=== PATIENT | female | born 1995 | race Caucasian/White ===

== ENCOUNTER 2019-12-30 18:45 | Emergency (ER) | payer OTHER, SELFPAY ==
--- NOTE | 2019-12-30 20:31 | EDPHYS ---
Physician Documentation [facility] Name: Kassidy Cruz Age: 24 yrs Sex: Female : 1995 Arrival Date: 12/30/2019 Time: 18:47 Bed 16 Private MD: ED Physician Krishna Sawant HPI: 12/29 19:13 This 24 yrs old Female presents to ER via Ambulatory with complaints of tw4 Anxiety, Psych Problem. 19:13 The patient presents to the emergency department with anxiety. Onset: The tw4 symptoms/episode began/occurred today. Past psychiatric history: Prior diagnosis: bipolar disorder, schizophrenia. Associated signs and symptoms: The patient has no apparent associated signs or symptoms. Severity of symptoms: At their worst the symptoms were moderate in the emergency department the symptoms are unchanged. The patient has not experienced similar symptoms in the past. 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 - Social history:: Smoking status: Patient reports the use of cigarette tobacco products, smokes one-half pack cigarettes per day, Patient/guardian denies using alcohol, street drugs. ROS: 19:13 Constitutional: Negative for fever, chills, and weight loss, Eyes: Negative for injury, tw4 pain, redness, and discharge, Cardiovascular: Negative for chest pain, palpitations, and edema, Respiratory: Negative for shortness of breath, cough, wheezing, and pleuritic chest pain, Abdomen/GI: Negative for abdominal pain, nausea, vomiting, diarrhea, and constipation, Back: Negative for injury and pain, MS/Extremity: Negative for injury and deformity, Skin: Negative for injury, rash, and discoloration, Neuro: Negative for headache, weakness, numbness, tingling, and seizure. 19:13 Psych: Positive for anxiety, depression. Exam: 19:13 Constitutional: This is a well developed, well nourished patient who is awake, alert, tw4 and in no acute distress. Head/Face: Normocephalic, atraumatic. Chest/axilla: Normal chest wall appearance and motion. Nontender with no deformity. No lesions are appreciated. Cardiovascular: Regular rate and rhythm with a normal S1 and S2. No gallops, murmurs, or rubs. Normal PMI, no JVD. No pulse deficits. Respiratory: Lungs have equal breath sounds bilaterally, clear to auscultation and percussion. No rales, rhonchi or wheezes noted. No increased work of breathing, no retractions or nasal flaring. Abdomen/GI: Soft, non-tender, with normal bowel sounds. No distension or tympany. No guarding or rebound. No evidence of tenderness throughout. Back: No spinal tenderness. No costovertebral tenderness. Full range of motion. MS/ Extremity: Pulses equal, no cyanosis. Neurovascular intact. Full, normal range of motion. Neuro: Awake and alert, GCS 15, oriented to person, place, time, and situation. Cranial nerves II-XII grossly intact. Motor strength 5/5 in all extremities. Sensory grossly intact. Cerebellar exam normal. Normal gait. 19:13 Psych: Behavior/mood is anxious, Affect is animated, Oriented to person, place, time, Patient has no thoughts/intents to harm self or others. Vital Signs: 18:48 BP 118 / 77; Pulse 93; Resp 15 S; Temp 98.3(TE); Pulse Ox 99% on R/A; Weight 68.04 kg ca1 (R); Height 5 ft. 7 in. (170.18 cm) (R); 19:52 BP 108 / 70; Pulse 72; Resp 18; Pulse Ox 99% on R/A; wh 20:35 BP 106 / 73; Pulse 74; Resp 18; Pulse Ox 100% on R/A; wh 18:48 Body Mass Index 23.49 (68.04 kg, 170.18 cm) ca1 MDM: 20:31 Patient medically screened. tw4 20:44 Differential diagnosis: acute psychotic break, depression. Data reviewed: vital signs, tw4 nurses notes. Data interpreted: Pulse oximetry: Interpretation: normal. Counseling: I had a detailed discussion with the patient and/or guardian regarding: the historical points, exam findings, and any diagnostic results supporting the discharge/admit diagnosis. Special discussion: I discussed with the patient/guardian in detail that at this point there is no indication for admission to the hospital. It is understood, however, that if the symptoms persist or worsen the patient needs to return immediately for re-evaluation. Administered Medications: 20:30 Drug: Ativan 1 mg Route: PO; 20:36 Follow up: Response: No adverse reaction; Anxiety unchanged; RASS: Alert and Calm (0) 20:32 CANCELLED (Physician Discretion): Haldol 5 mg PO once tw4 Disposition: 12/30/19 20:31 Discharged to Home. Impression: Anxiety disorder, unspecified. - Condition is Stable. - Discharge Instructions: Generalized Anxiety Disorder. - Medication Reconciliation Form, Thank You Letter, Antibiotic Education, Prescription Opioid Use form. - Follow up: Private Physician; When: Upon discharge from the Emergency Department; Reason: Recheck today's complaints, Continuance of care, Re-evaluation by your physician. - Problem is new. - Symptoms have improved. Signatures: Maria Luisa Nelson Krishna Sawant MD MD tw4 Serene Mehta RN RN ca1 Corrections: (The following items were deleted from the chart) 20:32 20:30 Haldol 5 mg PO once ordered. tw4 tw4 20:37 20:31 12/30/2019 20:31 Discharged to Home. Impression: Anxiety disorder, unspecified. Condition is Stable. Forms are Medication Reconciliation Form, Thank You Letter, Antibiotic Education, Prescription Opioid Use. Follow up: Private Physician; When: Upon discharge from the Emergency Department; Reason: Recheck today's complaints, Continuance of care, Re-evaluation by your physician. Problem is new. Symptoms have improved. tw4
--- NOTE | 2019-12-30 20:31 | ER ---
Nurse's Notes [facility] Name: Kassidy Cruz Age: 24 yrs Sex: Female : 1995 Arrival Date: 12/30/2019 Time: 18:47 Bed 16 Private MD: Diagnosis: Anxiety disorder, unspecified Presentation: 12/29 18:48 Chief complaint: Patient states: "I haven't slept in 138 hours. I can't eat, I have ca1 been vomiting. I can't sleep. My schizophrenia is getting worse since I haven't taken my meds for about a month now. Am also out of anxiety and depression medications". Coronavirus screen: Proceed with normal triage. Patient denies a cough. Patient denies shortness of breath or difficulty breathing. Patient denies measured and/or subjective temperature greater than 100.4F prior to today's visit. Patient denies travel on a cruise ship or to a country the [facility] currently lists as an affected area. Patient denies contact with known and/or suspected case of COVID-19. Ebola Screen: Patient negative for fever greater than or equal to 101.5 degrees Fahrenheit, and additional compatible Ebola Virus Disease symptoms Patient denies exposure to infectious person. Patient denies travel to an Ebola-affected area in the 21 days before illness onset. No symptoms or risks identified at this time. Initial Sepsis Screen: Does the patient meet any 2 criteria? No. Patient's initial sepsis screen is negative. Does the patient have a suspected source of infection? No. Patient's initial sepsis screen is negative. Risk Assessment: Do you want to hurt yourself or someone else? Patient reports no desire to harm self or others. Onset of symptoms was December 30, 2019. 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 - Social history:: Smoking status: Patient reports the use of cigarette tobacco products, smokes one-half pack cigarettes per day, Patient/guardian denies using alcohol, street drugs. Screenin:51 Abuse screen: Denies threats or abuse. Denies injuries from another. Nutritional wh screening: No deficits noted. Tuberculosis screening: No symptoms or risk factors identified. Fall Risk None identified. Assessment: 19:50 General: Appears in no apparent distress. Behavior is cooperative. Pain: Denies pain. wh Neuro: Level of Consciousness is awake, alert, obeys commands, Oriented to person, place, time, situation, Appropriate for age. Cardiovascular: Capillary refill < 3 seconds. Respiratory: Airway is patent Respiratory effort is even, unlabored, Respiratory pattern is regular, symmetrical. GI: Abdomen is flat, non-distended. : No signs and/or symptoms were reported regarding the genitourinary system. EENT: No signs and/or symptoms were reported regarding the EENT system. Derm: Skin is intact, is healthy with good turgor, Skin is pink, warm \\T\\ dry. normal. Musculoskeletal: Circulation, motion, and sensation intact. 20:35 Reassessment: Patient appears in no apparent distress at this time. No changes from previously documented assessment. Patient and/or family updated on plan of care and expected duration. Pain level reassessed. Patient is alert, oriented x 3, equal unlabored respirations, skin warm/dry/pink. Psych: 19:51 Subjective: Patient's mood is sad. Objective: Patient is cooperative, Speech is normal, wh Affect is flat. Interventions:. Suicide Risk Assessment: Sad Person Scale: Sex of patient: Female: Score 0 points. Age of patient: Score 1 point if patient 15-34. Depression: Score 1 point if signs of depression are present. Commitment: Patient will be a voluntary commitment. Vital Signs: 18:48 BP 118 / 77; Pulse 93; Resp 15 S; Temp 98.3(TE); Pulse Ox 99% on R/A; Weight 68.04 kg ca1 (R); Height 5 ft. 7 in. (170.18 cm) (R); 19:52 BP 108 / 70; Pulse 72; Resp 18; Pulse Ox 99% on R/A; wh 20:35 BP 106 / 73; Pulse 74; Resp 18; Pulse Ox 100% on R/A; wh 18:48 Body Mass Index 23.49 (68.04 kg, 170.18 cm) [facility] ED Course: 18:47 Patient arrived in ED. ag5 18:51 Triage completed. ca1 18:53 Arm band placed on right wrist. [facility] 19:02 Maria Luisa Nelson is Primary Nurse. 19:04 Krishna Sawant MD is Attending Physician. tw4 19:52 Patient has correct armband on for positive identification. Bed in low position. Call light in reach. Side rails up X 1. Pulse ox on. NIBP on. 20:36 No provider procedures requiring assistance completed. Patient did not have IV access during this emergency room visit. Administered Medications: 20:30 Drug: Ativan 1 mg Route: PO; 20:36 Follow up: Response: No adverse reaction; Anxiety unchanged; RASS: Alert and Calm (0) 20:32 CANCELLED (Physician Discretion): Haldol 5 mg PO once tw4 Outcome: 20:31 Discharge ordered by . tw4 20:36 Discharged to home ambulatory, with friend. 20:36 Condition: stable 20:36 Discharge instructions given to patient, Instructed on discharge instructions, follow up and referral plans. POC Demonstrated understanding of instructions, follow-up care, POC 20:37 Patient left the ED. Signatures: Maria Luisa Nelson Krishna Sawant MD MD tw4 Serene Mehta RN RN ca1 Alejandra Shields ag5 Corrections: (The following items were deleted from the chart) 18:51 18:48 Pulse 93bpm; Resp 15bpm; Spontaneous; Pulse Ox 99% RA; Temp 98.3F Temporal; 68.04 ca1 kg Reported; Height 5 ft. 7 in. Reported; BMI: 23.4; ca1
[2019-12-30] MEDS ORDERED: LORAZEPAM 1 MG TABLET ONE (20:41)
[2019-12-30 20:44] VITALS: TEMP 98.3
[2019-12-30 20:46] VITALS: BP 106/73; O2SAT 100
== END 2019-12-30 20:37 | disposition home or self-care (01) ==
LOC: ER 18:45
DX: F41.9 Anxiety disorder, unspecified (principal); Z88.6 Allergy status to analgesic agent
CPT/HCPCS: 99284